=== PATIENT | male | born 1970 | race Caucasian/White ===

== ENCOUNTER 2017-06-11 15:27 | Outpatient (CLI) | payer OTHER | END 2017-06-11 17:44 | disposition home or self-care (01) | LOC: DCC 15:27 | DX: J18.9 Pneumonia, unspecified organism (principal); E87.1 Hypo-osmolality and hyponatremia; F19.10 Other psychoactive substance abuse, uncomplicated | CPT/HCPCS: G0463 ==

== ENCOUNTER 2017-06-25 14:39 | Outpatient (CLI) | payer OTHER | END 2017-06-25 15:49 | disposition home or self-care (01) | LOC: DCC 14:39 | DX: J18.9 Pneumonia, unspecified organism (principal); F19.10 Other psychoactive substance abuse, uncomplicated; R00.0 Tachycardia, unspecified | CPT/HCPCS: G0463 ==